=== PATIENT | male | born 1990 | race Two or more races ===

== ENCOUNTER 2022-02-20 10:07 | Emergency (ER) | payer MEDICAID ==
[~2022-02-20] VITALS: Ht 175.3 cm; Wt 68.9 kg
[2022-02-20 10:27] VITALS: BP 113/72
[2022-02-20] MEDS ORDERED: IBUP800T27 PO (11:29)
[2022-02-20] MEDS ORDERED: KETOROLAC TROMETH 60MG/2ML VIAL IM ONE (11:30)
== END 2022-02-20 11:52 | disposition home or self-care (01) ==
LOC: ER 10:07
DX: S83.92XA Sprain of unspecified site of left knee, initial encounter (principal); S80.02XA Contusion of left knee, initial encounter; W18.39XA Other fall on same level, initial encounter; Y93.89 Activity, other specified; Y92.89 Other specified places as the place of occurrence of the external cause; Y99.8 Other external cause status
CPT/HCPCS: 73562; 96372; 99283; J1885